=== PATIENT | female | born 1935 | race Caucasian/White ===

== ENCOUNTER 2017-05-27 21:15 | Emergency (ER) | payer OTHER, MEDICARE ==
[~2017-05-27] VITALS: Ht 160 cm; Wt 55.3 kg
[~2017-05-27 21:15] MED LIST: ACIDOPHILUS1 EAC3 PO; ACIDOPHILUS1 EACH PO; ACTONEL35 MG PO; AMITRIPTYLINE H10 MG PO; ATENOLOL25 MG PO; ATIVAN0.5 MG PO; CALCIUM 600 +1 EACH PO; CALCIUM WITH V PO; EFFEXOR75 MG PO; ELAVIL10 MG PO; FISH OIL CONC1 EACH PO; LIPITOR80 MG PO; ONE-A-DAY WOME1 EAC1 PO; PANTOPRAZOLE SO40 MG PO; PROTONIX40 MG PO; SIMVASTATIN40 MG PO; TENORMIN25 MG PO; VENLAFAXINE H37.5 MG PO; VITAMIN B-121000 MCG PO; VITAMIN D-3 PO; VITAMIN D1000 INTUN PO
[2017-05-27 22:27] LABS: BASOPHIL COUNT 0.1 K/uL (0-0.1); EOSINOPHIL (%) 3.3 % (0-5); EOSINOPHIL COUNT 0.4 K/uL (0-0.3); HEMATOCRIT 36.2 % (36.0-46.0); IMMATURE GRANULOCYTE (%) 0.4 % (0.0-0.7); LYMPHOCYTE COUNT 1.6 K/uL (1.0-2.8); MCH 28.8 PG (29.0-34.0); MCHC 32.6 G/DL (30.0-36.0); MCV 88.3 FL (83-99); MEAN PLAT.VOLUME 9.8 uM^3 (9.5-12.4); MONOCYTE (%) 10.8 % (3-12); MONOCYTE COUNT 1.2 K/uL (0-0.8); NEUTROPHIL (%) 70.5 % (45-76); PLATELET COUNT 229 K/uL (156-360); RBC DIS.WIDTH-CV 13.2 % (11.8-14.6); RBC DIS.WIDTH-SD 42.9 % (39-53); WHITE BLOOD COUNT 11.4 K/uL (4.1-10.2)
[2017-05-27 22:38] LABS: CHLORIDE 104 mEq/L (99-109); POTASSIUM 4.3 mEq/L (3.7-5.4); SODIUM 140 mEq/L (136-147)
[2017-05-27 22:40] LABS: GLUCOSE 88 mg/dL (70-99)
[2017-05-27 22:41] LABS: ANION GAP 9 MEQ/L (2-14)
[2017-05-27 22:42] LABS: TOTAL BILIRUBIN 0.4 mg/dL (0.0-1.0)
[2017-05-27 22:43] LABS: ALKALINE PHOSPHATASE 77 IU/L (3-129)
[2017-05-27 22:44] LABS: GFR ESTIMATE (CALCULATED) 57 mL/min/
[2017-05-27 22:45] LABS: UREA NITROGEN (BUN) 21 mg/dL (9-23)
[2017-05-27 22:53] LABS: TROP-I INTERPRETATION NEGATIVE; TROPONIN-I 0.01 ng/mL (0.0-0.30)
[2017-05-27 23:30] LABS: ADD MIUA? YES; BILIRUBIN NEGATIVE; BLOOD SMALL; COLOR AMBER ((YELLOW)); GLUCOSE (STRIP) NEGATIVE; KETONES 5; LEUKOCYTES TRACE; NITRITE NEGATIVE; PROTEIN (STRIP) 30; SPECIFIC GRAVITY 1.025 (1.000-1.030)
[2017-05-27 23:49] LABS: BACTERIA NONE SEEN /HPF; CALCIUM OXALATE CRYSTALS 4+ /HPF; EPITHELIAL CELLS RARE /HPF; HYALINE CASTS 30-40 /LPF; MUCUS TRACE /LPF; RED BLOOD CELLS 15-20 /HPF (0-5); UCUL ADDED? NO; WHITE BLOOD CELLS 0-5 /HPF (0-5)
[2017-05-28 00:36] VITALS: BP 115/51
== END 2017-05-28 00:37 | disposition home or self-care (01) ==
LOC: EME → EDBD 21:15 → EME 05-28 00:37
PROVIDERS: Emergency Medicine
DX: R42 Dizziness and giddiness (principal); R51 Headache; K52.9 Noninfective gastroenteritis and colitis, unspecified; K21.9 Gastro-esophageal reflux disease without esophagitis
CPT/HCPCS: 70450; 71020; 80053; 81003; 84484; 85025; 93005; 99281; 99284; J1885; J2405; J7030

== ENCOUNTER 2018-01-19 16:31 | Emergency (ER) | payer OTHER, MEDICARE ==
[~2018-01-19] VITALS: Ht 161.3 cm; Wt 52.5 kg
[2018-01-19] MEDS ORDERED: KEFLEX500 MG PO (20:01)
[2018-01-19] MEDS ORDERED: ULTRACET1 TABLET PO (20:01)
[2018-01-19 21:10] VITALS: BP 179/81
== END 2018-01-19 20:45 | disposition home or self-care (01) ==
LOC: EME 16:31
PROC: 0JQK0ZZ Repair Left Hand Subcutaneous Tissue and Fascia, Open Approach (ICD-10-PCS; principal; 2018-01-19)
PROC: 3E0234Z Introduction of Serum, Toxoid and Vaccine into Muscle, Percutaneous Approach (ICD-10-PCS; 2018-01-19)
DX: S68.623A Partial traumatic transphalangeal amputation of left middle finger, initial encounter (principal); W23.0XXA Caught, crushed, jammed, or pinched between moving objects, initial encounter; M19.042 Primary osteoarthritis, left hand; Z23 Encounter for immunization; E78.5 Hyperlipidemia, unspecified; I95.9 Hypotension, unspecified
CPT/HCPCS: 73130; 99281; 99284; S0020